=== PATIENT | male | born 2000 | race Caucasian/White ===

== ENCOUNTER 2025-08-15 10:39 | Inpatient (IN) | payer MEDICAID ==
[~2025-08-15] VITALS: Ht 172.7 cm; Wt 78.9 kg
[2025-08-15 11:13] LABS: PLATELET COUNT (AUTO) 360 K/uL (150-450); RED BLOOD CELL COUNT(AUTO) 5.42 MIL/uL (4.50-5.90); RED CELL DISTRIBUTION WIDTH 13.2 % (11.5-14.5); WHITE BLOOD COUNT (AUTO) 8.4 K/uL (4.5-11.0)
[2025-08-15 11:16] LABS: COVID AG,FIA SOURCE NASAL SWAB
[2025-08-15 11:20] LABS: CALCIUM, TOTAL 9.2 mg/dL (8.8-10.5); CREATININE 1.2 mg/dL (0.60-1.30); GLOMERULAR FILTR. RATE CALC 52.0 mL/min (>60); GLUCOSE,RANDOM 114.0 mg/dL (70-110); SODIUM SERUM 143.0 mmol/L (136-145); UREA NITROGEN, BLOOD 12.0 mg/dL (7-18)
[2025-08-15 11:38] LABS: SARS-COV2 (COVID) ANTIGEN,FIA Negative (Negative)
[2025-08-15 13:35] VITALS: O2SAT 100
[2025-08-15 15:05] VITALS: BP 132/101; PULSE 89; RESP 20; TEMP 98.7; O2SAT 98
[2025-08-15] MEDS: ZOLPIDEM TARTRATE 10 MG TABLET PO PRN (18:45)
[2025-08-15 21:44] VITALS: RESP 18
[2025-08-16] MEDS ORDERED: PETROLATUM,WHITE 28 GM JELLY TP PRN (07:45)
[2025-08-16] MEDS ORDERED: MAGNESIUM HYDROXIDE SUSPENSION 30 ML UDCUP PO PRN (07:45)
[2025-08-16] MEDS ORDERED: MAG HYDROX/ALUMINUM HYD/SIMETH ES 30 ML SUSPENSION UDCUP PO PRN (07:45)
[2025-08-16] MEDS ORDERED: ACETAMINOPHEN 325 MG TABLET PO PRN (07:45)
[2025-08-16] MEDS ORDERED: ALBUTEROL SULFATE HFA 90 MCG/PUFF 8 GM INHALER IH PRN (07:45)
[2025-08-16] MEDS ORDERED: LOPERAMIDE HCL 2 MG CAPSULE PO PRN (07:45)
[2025-08-16] MEDS ORDERED: DOCUSATE SODIUM 100 MG CAPSULE PO PRN (07:45)
[2025-08-16] MEDS ORDERED: BENZOCAINE/MENTHOL [CEPACOL] LOZENGE PO PRN (07:45)
[2025-08-16] MEDS ORDERED: BACITRACIN 28 GM OINTMENT TP PRN (07:45)
[2025-08-16] MEDS ORDERED: ONDANSETRON 4 MG TABLET PO PRN (07:45)
[2025-08-16] MEDS ORDERED: OMEPRAZOLE 20 MG CAPSULE PO PRN (07:45)
[2025-08-16] MEDS ORDERED: IBUPROFEN 600 MG TABLET PO PRN (07:45)
[2025-08-16 08:16] LABS: CHOL/HDL RATIO 2.2 (4.2-7.3); LDL CHOL (CALC.) 65.0 mg/dL (0-130)
[2025-08-16 08:55] VITALS: BP 130/84; PULSE 74; RESP 16; TEMP 98.1; O2SAT 99
[2025-08-16 12:21] LABS: APPEARANCE,URINE TURBID (CLEAR); GLUCOSE, URINE (UA) NEGATIVE (NEGATIVE); LEUKOCYTE ESTERASE ,URINE NEGATIVE (NEGATIVE); NITRATE,URINE NEGATIVE (NEGATIVE); OCCULT BLOOD,URINE NEGATIVE (NEGATIVE); PH,URINE DRUG SCREEN 5.5 (5.0-8.0); SPECIFIC GRAVITIY, URINE 1.028 (1.003-1.030)
[2025-08-16 12:29] LABS: ALCOHOL, URINE DRUG SCREEN NEGATIVE (NEGATIVE); AMPHET/METH SCREEN,URINE NEGATIVE (NEGATIVE); BARBITURATE SCREEN, URINE NEGATIVE (NEGATIVE); CANNABINOID SCREEN,URINE NEGATIVE (NEGATIVE); COCAINE SCREEN,URINE NEGATIVE (NEGATIVE); METHADONE SCREEN, URINE NEGATIVE (NEGATIVE)
[2025-08-16 20:49] VITALS: BP 121/87; PULSE 81; RESP 16; TEMP 98.3; O2SAT 97
[2025-08-17 08:53] VITALS: BP 133/96; PULSE 74; RESP 16; TEMP 98.1; O2SAT 98
[2025-08-17 22:00] VITALS: BP 138/98; PULSE 78; RESP 18; TEMP 98.4; O2SAT 96
[2025-08-18 10:21] VITALS: BP 150/99; PULSE 94; RESP 17; TEMP 98.7; O2SAT 97
[2025-08-18 22:48] VITALS: BP 146/97; PULSE 81; RESP 16; TEMP 97.7; O2SAT 98
[2025-08-19 09:18] VITALS: BP 143/93; PULSE 84; RESP 16; TEMP 98.1; O2SAT 99
[2025-08-19 22:14] VITALS: BP 126/76; PULSE 71; RESP 18; TEMP 97.6; O2SAT 0
[2025-08-20 08:16] VITALS: BP 142/78; PULSE 68; RESP 16; TEMP 97.8; O2SAT 98
[2025-08-20] MEDS ORDERED: RISP-31 PO (16:19)
== END 2025-08-20 17:24 | disposition home or self-care (01) | DRG 750 ==
LOC: EMS 10:39 → EDBD 10:39 → 3EC 14:39
PROVIDERS: ADMIT Psychiatry & Neurology Psychiatry; ATTEND Psychiatry & Neurology Psychiatry
DX: F29 Unspecified psychosis not due to a substance or known physiological condition (principal); F32.A Depression, unspecified; F41.9 Anxiety disorder, unspecified; R03.0 Elevated blood-pressure reading, without diagnosis of hypertension; Z20.822 Contact with and (suspected) exposure to COVID-19; G47.00 Insomnia, unspecified; K59.00 Constipation, unspecified; Z79.899 Other long term (current) drug therapy; Z91.83 Wandering in diseases classified elsewhere
CPT/HCPCS: 80048; 80061; 80307; 81003; 83036; 85025; 87081; 99285; G0480

== ENCOUNTER 2025-10-04 12:38 | Emergency (ER) | payer MEDICAID ==
[~2025-10-04] VITALS: Ht 172.7 cm; Wt 81.8 kg
[~2025-10-04 12:38] MED LIST: RISP-31 PO
[2025-10-04 12:42] VITALS: TEMP 98.4
[2025-10-04 14:15] VITALS: BP 128/70; PULSE 70; RESP 16; O2SAT 98
== END 2025-10-04 21:01 | disposition left against medical advice (07) ==
LOC: EMS 12:49
DX: Z76.0 Encounter for issue of repeat prescription (principal); Z53.21 Procedure and treatment not carried out due to patient leaving prior to being seen by health care provider
CPT/HCPCS: 99281; Z7502